=== PATIENT | female | born 1980 | race Caucasian/White ===

== ENCOUNTER 2018-09-23 14:43 | Emergency (ER) | payer MEDICARE, MEDICAID ==
[~2018-09-23] VITALS: Ht 167.6 cm; Wt 90.0 kg
[2018-09-23 14:45] VITALS: BP 149/90
[2018-09-23] MEDS ORDERED: dexamethasone sod phosphate 10mg/ml inj IM STA (14:55)
[2018-09-23] MEDS ORDERED: METH4TAB3 PO (14:56)
== END 2018-09-23 15:19 | disposition home or self-care (01) ==
LOC: ER 14:44
DX: L23.1 Allergic contact dermatitis due to adhesives (principal); Z91.040 Latex allergy status; Z88.6 Allergy status to analgesic agent; Z88.2 Allergy status to sulfonamides; Z88.1 Allergy status to other antibiotic agents; Z88.8 Allergy status to other drugs, medicaments and biological substances; Z79.899 Other long term (current) drug therapy; Z98.890 Other specified postprocedural states
CPT/HCPCS: 96372; 99283; J1100

== ENCOUNTER 2022-02-10 01:02 | Emergency (ER) | payer MEDICARE, MEDICAID ==
[~2022-02-10] VITALS: Ht 162.6 cm; Wt 81.8 kg
[~2022-02-10 01:02] MED LIST: METH4TAB3 PO
[2022-02-10 01:30] VITALS: BP 169/100
[2022-02-10 08:29] LABS: CLARITY,URINE SLIGHTLY CLOUDY (Clear); COLOR,URINE YELLOW (Yellow); GLUCOSE, URINE NEGATIVE (Neg); KETONES,URINE NEGATIVE (Neg); LEUKOCYTE ESTERASE ,URINE NEGATIVE (Neg); NITRITES, URINE NEGATIVE (Neg); OCCULT BLOOD,URINE NEGATIVE (Neg); PH,URINE 5.5 (4.8-8.0); PROTEIN,URINE NEGATIVE (Neg); UROBILINOGEN,URINE 0.2 E.U/dL (0.2-1.0)
[2022-02-10 08:31] LABS: BASOPHILS # (AUTO) 0.1 X10'3 (0-0.2); BASOPHILS % (AUTO) 0.7 % (0-1); EOSINOPHILS # (AUTO) 0.2 X10'3 (0-0.9); EOSINOPHILS % (AUTO) 2.2 % (0-6); HEMATOCRIT 46.4 % (35.0-45.0); HEMOGLOBIN 15.9 g/dl (12.0-16.0); LYMPHOCYTES # (AUTO) 3.6 X10'3 (1.1-4.8); LYMPHOCYTES % (AUTO) 32.8 % (21-51); MEAN CORPUSCULAR HEMOGLOBIN 31.5 PG (27.0-31.0); MEAN CORPUSCULAR HGB CONC 34.4 g/dL (33.0-36.5); MEAN CORPUSCULAR VOLUME 91.4 FL (78-98); MEAN PLATELET VOLUME 7.4 FL (7.4-10.4); MONOCYTES # (AUTO) 0.9 X10'3 (0-0.9); MONOCYTES % (AUTO) 7.9 % (2-12); NEUTROPHILS # (AUTO) 6.2 X10'3 (1.8-7.7); NEUTROPHILS % (AUTO) 56.4 % (42-75); PLATELET COUNT 274 X10'3 (140-440); RED BLOOD COUNT 5.07 X10'6 (4.20-5.60); RED CELL DISTRIBUTION WIDTH 13.3 % (11.5-14.5); WHITE BLOOD COUNT 11.1 X10'3 (4.5-11.0)
[2022-02-10 08:33] LABS: UA COLLECTION TYPE CLN CATCH MIDSTREAM
[2022-02-10 08:34] LABS: URINE AMPHETAMINE SCREEN NEGATIVE (Neg); URINE BARBITUATE SCREEN NEGATIVE (Neg); URINE BENZODIAZEPINES SCREEN NEGATIVE (Neg); URINE CANNABINOID SCREEN NEGATIVE (Neg); URINE COCAINE SCREEN NEGATIVE (Neg); URINE METHADONE SCREEN NEGATIVE (Neg); URINE OPIATE SCREEN NEGATIVE (Neg); URINE PHENCYCLIDINE SCREEN NEGATIVE (Neg)
[2022-02-10 08:36] LABS: MUCUS STRANDS MANY /LPF (Neg); SQUAMOUS EPITHELIAL CELL,UR MODERATE /LPF (FEW)
[2022-02-10 08:37] LABS: CAL OXALATE CRYSTALS 2+ /HPF (NEGATIVE)
[2022-02-10 08:38] LABS: BACTERIA,URINE FEW /HPF (Neg)
[2022-02-10 08:39] LABS: RBC,URINE 0-2 /HPF (0-2)
[2022-02-10 08:43] LABS: ALANINE AMINOTRANSFERASE 26 U/L (12-78); ALBUMIN 3.5 G/DL (3.4-5.0); ALBUMIN/GLOBULIN RATIO 1.1 (1.1-1.5); ALKALINE PHOSPHATASE 71 IU/L (46-116); ANION GAP 11 (8-16); ASPARTATE AMINO TRANSFERASE 17 U/L (10-37); BILIRUBIN,TOTAL 0.3 MG/DL (0.1-1.0); BLOOD UREA NITROGEN 13 MG/DL (7-18); BUN/CREATININE RATIO 14.1 (6.6-38.0); CALCIUM 8.7 MG/DL (8.5-10.1); CHLORIDE 107 MMOL/L (99-107); CREATININE 0.92 MG/DL (0.40-0.90); GLUCOSE 104 MG/DL (70-104); POTASSIUM 3.6 MMOL/L (3.5-5.1); SODIUM 141 MMOL/L (135-145); TOTAL CARBON DIOXIDE 23.2 MMOL/L (24-32); TOTAL PROTEIN 6.8 G/DL (6.4-8.2); eGFR 67 ML/MIN
[2022-02-10 08:52] LABS: ETHANOL < 0.010 GM/DL (0.0-0.010); VALPROATE 64 UG/ML (50-100)
[2022-02-10] MEDS ORDERED: ERGO400C (09:36)
[2022-02-10] MEDS ORDERED: GABA600T13 PO (09:36)
[2022-02-10] MEDS ORDERED: TEMA30CA5 PO (09:36)
[2022-02-10] MEDS ORDERED: DIVA-74 PO (09:36)
[2022-02-10] MEDS ORDERED: BUDE0.256 NEB (09:36)
[2022-02-10] MEDS ORDERED: IRON100V6 (09:36)
[2022-02-10] MEDS ORDERED: MONT5TAB14 PO (09:36)
[2022-02-10] MEDS ORDERED: IPRA3AMP9 IH (09:36)
[2022-02-10] MEDS ORDERED: PER5325T PO (09:36)
[2022-02-10] MEDS ORDERED: ONDA8TAB13 PO (09:36)
[2022-02-10] MEDS ORDERED: BACL-11 PO (09:36)
[2022-02-10] MEDS ORDERED: TOP100T PO (09:36)
[2022-02-10] MEDS ORDERED: ADV50250 IH (09:36)
[2022-02-10] MEDS ORDERED: ACET-1008 PO (09:36)
[2022-02-10] MEDS ORDERED: EFF37.5XRC PO (09:36)
[2022-02-10] MEDS ORDERED: DIAZ5TAB4 PO (09:36)
[2022-02-10] MEDS ORDERED: POLY17PO10 PO (09:36)
[2022-02-10] MEDS ORDERED: PRAM0.253 PO (09:36)
[2022-02-10] MEDS ORDERED: DIVA-81 PO (09:36)
[2022-02-10] MEDS ORDERED: FEXO-353 PO (09:36)
[2022-02-10] MEDS ORDERED: topiramate 100mg tablet PO PRN (12:45)
[2022-02-10] MEDS ORDERED: divalproex 250mg tablet, delayed-release PO PRN (12:45)
[2022-02-10] MEDS ORDERED: diazepam 5mg tablet PO PRN (12:45)
[2022-02-10] MEDS ORDERED: oxyCODONE/APAP 5-325mg tablet PO PRN (12:45)
[2022-02-10] MEDS ORDERED: acetaminophen 325mg tablet PO PRN (12:45)
[2022-02-10] MEDS ORDERED: METHYLPREDNISOLONE PO SCH (12:45)
[2022-02-10] MEDS ORDERED: ipratropium/albuterol 3ml nebule IH PRN (12:45)
[2022-02-10] MEDS ORDERED: divalproex sod 250mg ER (24-hour) tablet PO SCH (13:00)
[2022-02-10] MEDS ORDERED: budesonide 0.5mg/2ml UD nebule IH SCH (13:12)
[2022-02-10] MEDS ORDERED: baclofen 10mg tablet PO PRN (13:15)
[2022-02-10] MEDS ORDERED: temazepam 15mg capsule PO PRN (13:45)
[2022-02-10] MEDS ORDERED: ondansetron 4mg rapidly disintigrating tab PO SCH (16:00)
[2022-02-10] MEDS ORDERED: non-formulary drug (Fluticasone/Salmeterol* (Advair 250-50 Diskus*) 1 PUFF) IH SCH (20:00)
[2022-02-10] MEDS ORDERED: polyethylene glycol 3350 17gm powd pack PO SCH (21:00)
[2022-02-10] MEDS ORDERED: gabapentin 300mg capsule PO SCH (21:00)
[2022-02-10] MEDS ORDERED: pramipexole 0.25mg tablet PO SCH (21:00)
[2022-02-10] MEDS ORDERED: montelukast 10mg tablet PO SCH (21:00)
[2022-02-10] MEDS ORDERED: venlafaxine XR 75mg capsule (Q24H) PO SCH (21:00)
[2022-02-11] MEDS ORDERED: loratadine 10mg tablet PO SCH (08:00)
[2022-02-11] MEDS ORDERED: cholecalciferol (vitamin D3) 1,000 unit (25mcg) tablet PO SCH (08:00)
== END 2022-02-10 12:15 | disposition home or self-care (01) ==
LOC: ER 01:03
DX: R45.851 Suicidal ideations (principal); Z20.822 Contact with and (suspected) exposure to COVID-19; F32.A Depression, unspecified; Z91.51 Personal history of suicidal behavior; G89.29 Other chronic pain; F15.90 Other stimulant use, unspecified, uncomplicated; G40.909 Epilepsy, unspecified, not intractable, without status epilepticus; Z90.49 Acquired absence of other specified parts of digestive tract; Z90.710 Acquired absence of both cervix and uterus; Z90.721 Acquired absence of ovaries, unilateral; Z88.2 Allergy status to sulfonamides; Z88.5 Allergy status to narcotic agent; Z91.040 Latex allergy status; Z91.041 Radiographic dye allergy status; Z88.1 Allergy status to other antibiotic agents
CPT/HCPCS: 36415; 80053; 80164; 80305; 80320; 81001; 84443; 85025; 99285